=== PATIENT | female | born 1935 | race Caucasian/White ===

== ENCOUNTER 2016-07-06 22:19 | Emergency (ER) | payer OTHER ==
[~2016-07-06] VITALS: Ht 165.1 cm; Wt 95.7 kg
[2016-07-06 23:14] VITALS: BP_SYST 114
[2016-07-07] MEDS ORDERED: KETOROLAC TROMETHAMINE 60 MG/2 ML VIAL IM ONE (01:30)
[2016-07-07 01:45] VITALS: BP_SYST 112
== END 2016-07-07 01:45 | disposition home or self-care (01) ==
LOC: SED 22:19
DX: R05 Cough (principal); R11.0 Nausea; H66.91 Otitis media, unspecified, right ear; Z90.49 Acquired absence of other specified parts of digestive tract; Z90.710 Acquired absence of both cervix and uterus
CPT/HCPCS: 96372; 99283; J1885